=== PATIENT | male | born 1965 | race Hispanic/Latino ===

== ENCOUNTER 2019-10-26 08:38 | Emergency (ER) | payer BC, OTHER ==
[~2019-10-26] VITALS: Ht 172.7 cm; Wt 90.7 kg
[2019-10-26] MEDS ORDERED: PROCHLORPERAZINE EDISYLATE 10 MG/2 ML VIAL ONE (09:09)
[2019-10-26] MEDS ORDERED: LORAZEPAM 2 MG/ML 1 ML VIAL ONE (09:11)
[2019-10-26 09:13] LABS: BASOPHILS % (AUTO) 0.4 % (0.0-5.0); EOSINOPHILS % (AUTO) 0.3 % (0.0-8.0); HEMATOCRIT 43.8 % (42-54); LYMPHOCYTES % (AUTO) 18.1 % (21.0-51.0); MEAN CORPUSCULAR HEMOGLOBIN 27.9 pg (27.0-33.0); MONOCYTES % (AUTO) 5.5 % (3.0-13.0); NEUTROPHILS % (AUTO) 75.2 % (40.0-77.0); PLATELET COUNT (AUTO) 178 K/uL (130-400); RED BLOOD CELL COUNT(AUTO) 5.34 MIL/uL (4.50-6.20); RED CELL DISTRIBUTION WIDTH 12.8 % (11.0-15.5); WHITE BLOOD COUNT (AUTO) 9.4 K/uL (4.8-10.8)
[2019-10-26 09:19] LABS: CREATININE 1.3 mg/dL (0.5-1.5); POTASSIUM 3.9 mmol/L (3.5-5.1)
[2019-10-26] MEDS ORDERED: NICARDIPINE HCL 100 MG in SODIUM CHLORIDE 0.9% 100 ML IV SCH (10:00)
[2019-10-26] MEDS ORDERED: IOHEXOL-350 75 ML VIAL IV ONE (10:53)
== END 2019-10-26 12:12 | disposition home or self-care (01) ==
LOC: EDH 08:38
DX: I60.9 Nontraumatic subarachnoid hemorrhage, unspecified (principal); I16.0 Hypertensive urgency; I10 Essential (primary) hypertension
CPT/HCPCS: 36415; 70450; 70496; 80048; 85025; 86850; 86900; 86901; 93005; 96365; 96375; 99291; J0780; J2060; J3490; Q9967

== ENCOUNTER → 2023-09-19 | Outpatient (CLI) | payer BC | END | disposition home or self-care (01) | LOC: RAH 09:34 | PROVIDERS: ATTEND Internal Medicine | DX: N28.1 Cyst of kidney, acquired (principal); R94.4 Abnormal results of kidney function studies | CPT/HCPCS: 76705 ==